=== PATIENT | male | born 1955 | race Caucasian/White ===

== ENCOUNTER → 2016-06-14 | Outpatient (CLI) | payer MEDICARE, SELFPAY ==
[~2016-06-14] MED LIST: ASPIRIN CHEWABL81 MG PO; BRILINTA90 MG PO; FLONASE 0.05% N16 GM; LISINOPRIL5 MG PO; LOPRESSOR 25 MG25 MG PO; MIRALAX17 GM PO; NITROSTAT0.4 MG SL; OXYCODONE HCL5 MG PO; RANEXA1000 MG PO; ROXICODONE5 MG PO; VALIUM5 MG PO
== END ==
LOC: HEART CORB 06-05 09:11
DX: I25.10 Atherosclerotic heart disease of native coronary artery without angina pectoris (principal); R07.2 Precordial pain